=== PATIENT | male | born 1950 | race Caucasian/White ===

== ENCOUNTER → 2017-12-13 08:27 | Outpatient (CLI) | payer OTHER, SELFPAY ==
[2017-12-13 10:13] LABS: Add Manual Diff / Slide Review NO; Basophils Percent Auto 1.8 % (0-2); Eosinophils Percent Auto 2.1 % (2-4); Hematocrit 40.4 % (41-53); Hemoglobin 13.8 g/dL (13.5-17.5); Lymphocytes Percent Auto 23.7 % (25-40); Mean Corpuscular HGB Conc 34.1 % (30-36); Mean Corpuscular Hemoglobin 33.3 PG (26-34); Mean Corpuscular Volume 97.7 fL (80-100); Monocytes Percent Auto 10.2 % (3-14); Neutrophils Absolute Auto 3100 /uL (3000-5900); Neutrophils Percent Auto 62.2 % (50-75); Platelet Count 177 X10^3/uL (150-400); Red Blood Cell Count 4.13 X10^6/uL (4.5-5.9); Red Cell Distribution Width 12.9 % (11.6-14.8)
[2017-12-13 10:19] LABS: Hemoglobin A1C% w Est Avg Glu 5.2 % (4.0-6.0)
[2017-12-13 10:35] LABS: Aspartate Aminotransferase 51 IU/L (17-59); BUN Creatinine Ratio 21.4 (6-22); Blood Urea Nitrogen 15 mg/dL (9-20); Calcium 8.9 mg/dL (8.4-10.2); Carbon Dioxide 32 mmol/L (22-32); Chloride 104 mmol/L (98-107); Cholesterol 93 mg/dL (140-199); Estimated Glomerular Filt Rate > 60.0 mL/min (>60); Glucose 81 mg/dL (80-110); HDL Cholesterol 36 mg/dL (40-60); HEMOLYSIS < 15 (0-50); LDL Cholesterol Calculated 44 mg/dL (<100); Potassium 4.2 mmol/L (3.4-5.1); Sodium 142 mmol/L (137-145); Triglycerides 65 mg/dL (35-150)
== END ==
PROVIDERS: Family Provider Internal Medicine; PCP Internal Medicine; Visit Provider Internal Medicine
DX: R73.01 Impaired fasting glucose (principal); E78.00 Pure hypercholesterolemia, unspecified; I25.10 Atherosclerotic heart disease of native coronary artery without angina pectoris
CPT/HCPCS: 36415; 80048; 80061; 83036; 84450; 85025

== ENCOUNTER → 2018-02-25 08:50 | Outpatient (CLI) | payer OTHER, SELFPAY ==
[2018-02-25 10:05] LABS: Cholesterol 96 mg/dL (140-199); HDL Cholesterol 38 mg/dL (40-60); LDL Cholesterol Calculated 44 mg/dL (<100); Triglycerides 68 mg/dL (35-150)
== END ==
PROVIDERS: Family Provider Internal Medicine; PCP Internal Medicine; Visit Provider Internal Medicine Cardiovascular Disease
DX: E78.00 Pure hypercholesterolemia, unspecified (principal)
CPT/HCPCS: 36415; 80061

== ENCOUNTER → 2018-07-11 10:13 | Outpatient (CLI) | payer OTHER, SELFPAY ==
[2018-07-11 11:27] LABS: Cholesterol 92 mg/dL (140-199); HDL Cholesterol 32 mg/dL (40-60); LDL Cholesterol Calculated 48 mg/dL (<100); Triglycerides 62 mg/dL (35-150)
== END ==
PROVIDERS: Family Provider Internal Medicine; PCP Internal Medicine; Visit Provider Internal Medicine Cardiovascular Disease
DX: I25.10 Atherosclerotic heart disease of native coronary artery without angina pectoris (principal)
CPT/HCPCS: 36415; 80061

== ENCOUNTER 2018-07-30 07:48 | Day surgery (SDC) | payer OTHER, SELFPAY ==
[2018-07-30] VITALS (7 sets, daily range): BP systolic 91–112; BP diastolic 47–63; PULSE 48–52; RESP 12–16; TEMP 36.3–36.6; O2SAT 93–97; BMI 21.1
--- NOTE | 2018-07-30 10:07 | PM.HP.1 ---
History of Present Illness Chief complaint: [id number] Patient History Social History household members: spouse Family & Social History Social History: household members spouse Meds Home Medications Medication Instructions Recorded Confirmed Type [CARLOS PALMETTO] Q DAY #0 03/29/16 History ascorbic acid (vitamin C) 500 mg PO QDAY #0 03/29/16 History aspirin 81 mg PO QDAY #0 03/29/16 History coenzyme Q10 [Co Q-10] 100 mg PO QDAY #0 03/29/16 History fexofenadine 60 mg PO Q DAY #0 03/29/16 History multivitamin [Multiple Vitamins] 1 tab PO QDAY #0 03/29/16 History atorvastatin [Lipitor] 40 mg PO HS #0 01/22/17 07/30/18 History Allergies Allergy/AdvReac Type Severity Reaction Status Date / Time Penicillins [PENICILLINS] Allergy Unknown Unverified 08/28/17 12:27 Review of Systems Review of Systems All systems reviewed & are unremarkable except as noted in HPI and below Exam Vital Signs (past 8 hours): - 07/30/18 08:17 Temperature 97.9 F Pulse Rate 48 L Respiratory Rate 16 Blood Pressure 112/63 Pulse Oximetry 93 Oxygen Delivery Method Room Air Narrative Exam Narrative: Awake alert oriented x3, eyes equal round and reactive, lungs clear to auscultation, heart regular rate and rhythm, abdomen soft nontender nondistended, no lower extremity edema Assessment & Plan Assessment & Plan narrative: Colonoscopy for colon cancer screening
[2018-07-30] MEDS: MIDAZOLAM 5 MG/5 ML VIAL IV (10:14)
[2018-07-30] MEDS: fentaNYL 250 MCG/5 ML INJ IV (10:14)
--- NOTE | 2018-07-30 10:37 | PM.OP.ENDO ---
Operative Date/Time/Diagnoses Date of procedure: 07/30/18 Procedure & Clinicians Study performed: Colonoscopy Moderate conscious sedation was administered by the endoscopy nurse and supervised by the endoscopist. The following parameters were monitored: Oxygen saturation, heart rate, blood pressure, and response to care. Sedation: 4 mg midazolam, 100 mcg fentanyl Procedure Notes Procedure in detail: Prior to the procedure, history and physical was performed, and patient medications and allergies were reviewed. Preprocedure nursing history and assessment was reviewed. Patient identification and proposed procedure were verified by the physician and nurse in the procedure room. The physical status of the patient was reassessed after the procedure. After informed consent was obtained including risks, benefits, and alternatives, the scope was passed under direct vision. Throughout the procedure, the patient's blood pressure, pulse, and oxygen saturations were monitored continuously. The colonoscope was introduced through the anus and advanced to the cecum as identified by the appendiceal orifice and ileocecal valve. The patient tolerated the procedure well. Bowel prep was deemed adequate to detect polyps greater than 5 mm. Digital rectal examination and perianal examinations were unremarkable. Retroflexion revealed grade 2 medium-sized internal hemorrhoids The remainder of the colon was unremarkable Sedation minutes: 19 Specimen(s): none sent Complications: other (No complications. EBL none.) Recommendations: Colonscopy in 5 years Plan for aftercare: Resume home medications Resume previous diet Discharge home with escort
--- NOTE | 2018-07-30 11:22 | SUR.PHASEII ---
Desires d/c home despite continued sleepiness. Able to dress self and is without complaints, tolerating post procedure environment well.
== END 2018-07-30 11:14 | disposition home or self-care (01) ==
PROVIDERS: Family Provider Internal Medicine; PCP Internal Medicine; Visit Provider Internal Medicine
PROC: 0DJD8ZZ Inspection of Lower Intestinal Tract, Via Natural or Artificial Opening Endoscopic (ICD-10-PCS; CPT 45378; principal; 2018-07-30 09:30)
DX: Z12.11 Encounter for screening for malignant neoplasm of colon (principal); Z80.0 Family history of malignant neoplasm of digestive organs; K64.1 Second degree hemorrhoids
CPT/HCPCS: G0105; J2250; J3010

== ENCOUNTER → 2019-04-07 08:34 | Outpatient (CLI) | payer OTHER, SELFPAY ==
[2019-04-07 09:46] LABS: Cholesterol 101 mg/dL (140-199); Glucose 92 mg/dL (80-110); HDL Cholesterol 37 mg/dL (40-60); LDL Cholesterol Calculated 54 mg/dL (<100); Triglycerides 52 mg/dL (35-150)
== END ==
PROVIDERS: Family Provider Internal Medicine; PCP Internal Medicine; Visit Provider Internal Medicine
DX: R73.01 Impaired fasting glucose (principal); E78.00 Pure hypercholesterolemia, unspecified
CPT/HCPCS: 36415; 80061; 82947

== ENCOUNTER → 2019-07-03 08:55 | Outpatient (CLI) | payer OTHER, SELFPAY ==
--- NOTE | 2019-07-03 | DI.US.S_ITS ---
PROCEDURE: US CAROTID DOPPLER BI INDICATIONS: ATHEROSCLEROTIC HEART DISEASE OF [place] CORONARY ARTERY TECHNIQUE: Color and pulse Doppler interrogation was performed of both carotid systems, with image documentation and velocity measurements. COMPARISON: [facility], , CAROTID ARTERY DOPPLER BILAT, 02/18/2017, 8:41. FINDINGS: Stenosis calculations are based on SRU (Society of Radiologists in Ultrasound) criteria. Right side: Brachial blood pressure: 117/68 mm Hg. Common carotid artery peak systolic velocity: 107 cm/sec. Internal carotid artery peak systolic velocity: 89 cm/sec. Internal carotid artery end diastolic velocity: 32 cm/sec. External carotid artery peak systolic velocity: 96 cm/sec. ICA/CCA peak systolic ratio: 0.83. Ghosh scale imaging description: Mild plaquing Percent internal carotid artery stenosis: Less than 50%. Vertebral artery: Flow direction is antegrade. Left side: Brachial blood pressure: 110/65 mm Hg. Common carotid artery peak systolic velocity: 114 cm/sec. Internal carotid artery peak systolic velocity: 95 cm/sec. Internal carotid artery end diastolic velocity: 33 cm/sec. External carotid artery peak systolic velocity: One before cm/sec. ICA/CCA peak systolic ratio: 0.84. Ghosh scale imaging description: Minimal plaquing Percent internal carotid artery stenosis: Less than 50%. Vertebral artery: Flow direction is antegrade. IMPRESSION: Less than 50% internal carotid artery stenoses bilaterally. Dictated by: Nelly Lubin M.D. on 07/03/2019 at 13:34 Approved by: Nelly Lubin M.D. on 07/03/2019 at 13:36
--- NOTE | 2019-07-03 | DI.ECHO.S_ITS ---
[facility]---------+ [facility] +---------+ : : [id number] : : : : [id number] : : : : Phone: [phone]+ Echocardiogram Report + + :Name: ZO GUTIERREZ Study Date: 07/03/2019 Height: 73 in : :[facility] Exam Location: [place] Weight: 160 lb : : Gender: Male BSA: 2.0 m2 : :: 1950 Age: 69 yrs BP: 102/70 mmHg: :Reason For Study: CAD : :Ordering Physician: Dr. Jasso : :[place] Performed By: Adrienne Page : + + Interpretation Summary Sinus bradycardia. Slow pulse; heart rate is 50-53 bpm during the exam. Normal LV size, wall thickness, wall motion and LV systolic function. EF is 60-65%. Moderate biatrial enlargement; otherwise normal chamber sizes. No significant valvular abnormalities. No prior study available for comparison. Procedure: A two-dimensional transthoracic echocardiogram with color flow and Doppler was performed. The study quality was technically adequate. There is no prior echocardiogram noted for this patient. The patient was in sinus bradycardia with heart rates between 50-53 bpm during the exam. Left Ventricle: The left ventricle is normal in size, wall thickness, and systolic function without any focal wall motion abnormalities. The ejection fraction is estimated to be 60-65%. Diastolic parameters suggest probable normal left ventricular diastolic function and normal filling pressures. Right Ventricle: The right ventricle is normal in size and function. Atria: Both atria are moderately dilated. There is no Doppler evidence for an interatrial shunt. Mitral Valve: There is a flat closure plane of the the mitral valve leaflets. There is mild mitral annular calcification. Redundant elongated chordae are noted. There is trace mitral regurgitation. Aortic Valve: The aortic valve is trileaflet. The aortic valve opens well. No aortic regurgitation is present. Tricuspid Valve: The tricuspid valve is normal in structure and function. There is a trace or physiologic amount of tricuspid regurgitation. The right ventricular systolic pressure is estimated to be at least 26 mmHg based on an estimated right atrial pressure of 8 mm Hg. Pulmonic Valve: The pulmonic valve is not well seen, but is grossly normal. There is a trace or physiologic amount of pulmonic regurgitation. Great Vessels: The aortic root is normal size. The ascending aorta is normal in size. The pulmonary artery is normal size. The IVC is dilated (diameter is greater than 2.1 cm) yet it collapses greater than 50% with a sniff. This suggests a right atrial pressure of 8 mm Hg. Pericardium/ Pleura There is no pericardial effusion. There is no pleural effusion. MMode/2D Measurements & Calculations LVIDd: 4.9 cm LVOT diam: 2.3 cm LVIDs: 2.9 cm Ao root diam: 3.7 cm FS: 41.7 % asc Aorta Diam: 3.1 cm IVSd: 0.69 cm LVPWd: 0.71 cm LV pat. diameter/BSA (cm/m^2): 2.5 LV sys. diameter/BSA (cm/m^2): 1.5 LA A2 area: 25.4 cm2 RA long axis: 5.8 cm LA A4 area: 23.4 cm2 RA area: 25.6 cm2 LA length (vol): 5.9 cm RA vol: 96.2 ml LA vol: 86.0 ml RA : 49.1 ml/m2 LA vol index: 43.9 ml/m2 IVC diam: 2.8 cm RVD1 (basal): 4.5 cm TAPSE: 3.6 cm Doppler Measurements & Calculations Ao V2 max: 120.0 cm/sec LVOT Max Kannan: 116.9 cm/sec Ao V2 mean: 84.3 cm/sec LV V1 max P.5 mmHg Ao max P.8 mmHg LV V1 VTI: 25.4 cm Ao mean P.1 mmHg REY(I,D): 4.0 cm2 Ao V2 VTI: 26.5 cm REY(V,D): 4.1 cm2 sev ratio: 0.96 REY indexed to BSA (cm^2/m^2): 2.0 MV E max kannan: 62.9 cm/sec TR max kannan: 212.9 cm/sec MV A max kannan: 65.6 cm/sec TR max P.1 mmHg MV E/A: 0.96 PA V2 max: 83.3 cm/sec Med Peak E' Kannan: 7.9 cm/sec PA V2 mean: 58.4 cm/sec E/E' med: 8.0 PA mean P.5 mmHg Lat Peak E' Kannan: 9.5 cm/sec PA Accel Time: 0.15 sec E/E' lat: 6.6 E/e' average: 7.3 MV dec time: 0.24 sec MV P1/2t: 68.9 msec MV P1/2t max kannan: 61.1 cm/sec SV(LVOT): 105.7 ml MVA(P1/2t): 3.2 cm2 Electronically signed by: Patricia Mata M.D. on Reading Physician:07/03/2019 07:42 PM
== END ==
PROVIDERS: Family Provider Internal Medicine; PCP Internal Medicine; Referring Provider Internal Medicine; Visit Provider Internal Medicine
DX: I65.23 Occlusion and stenosis of bilateral carotid arteries (principal); I25.10 Atherosclerotic heart disease of native coronary artery without angina pectoris
CPT/HCPCS: 93306; 93880

== ENCOUNTER → 2019-10-03 08:19 | Outpatient (CLI) | payer OTHER, SELFPAY ==
[2019-10-03 10:12] LABS: Cholesterol 110 mg/dL (140-199); HDL Cholesterol 36 mg/dL (40-60); LDL Cholesterol Calculated 56 mg/dL (<100); Triglycerides 91 mg/dL (35-150)
[2019-10-03 10:13] LABS: Glucose 91 mg/dL (80-110)
== END ==
PROVIDERS: Family Provider Internal Medicine; PCP Internal Medicine; Referring Provider Internal Medicine Cardiovascular Disease; Visit Provider Internal Medicine
DX: I25.10 Atherosclerotic heart disease of native coronary artery without angina pectoris (principal); E78.00 Pure hypercholesterolemia, unspecified; R00.1 Bradycardia, unspecified; Z95.5 Presence of coronary angioplasty implant and graft; R73.01 Impaired fasting glucose
CPT/HCPCS: 36415; 80061; 82947

== ENCOUNTER → 2020-08-03 08:23 | Outpatient (CLI) | payer OTHER, SELFPAY ==
[2020-08-03 09:10] LABS: Add Manual Diff / Slide Review NO; Basophils Absolute Auto 100 /uL (0-100); Basophils Percent Auto 1.4 % (0-2); Eosinophils Absolute Auto 100 /uL (0-450); Eosinophils Percent Auto 1.7 % (2-4); Hematocrit 42.4 % (41-53); Hemoglobin 14.3 g/dL (13.5-17.5); Lymphocytes Absolute Auto 1200 /uL (1100-4500); Lymphocytes Percent Auto 22.4 % (25-40); Mean Corpuscular HGB Conc 33.8 % (30-36); Mean Corpuscular Hemoglobin 33.1 PG (26-34); Monocytes Absolute Auto 500 /uL (0-900); Neutrophils Absolute Auto 3400 /uL (1500-7000); Neutrophils Percent Auto 65.5 % (50-75); Platelet Count 187 X10^3/uL (150-400); Red Blood Cell Count 4.32 X10^6/uL (4.5-5.9); Red Cell Distribution Width 12.6 % (11.6-14.8); White Blood Cell Count 5.2 X10^3/uL (4.5-11.0)
[2020-08-03 09:27] LABS: Hemoglobin A1C% w Est Avg Glu 5.1 % (4.0-6.0)
[2020-08-03 09:28] LABS: Alanine Aminotransferase 28 IU/L (<50); Albumin Globulin Ratio 1.4 (1.0-2.8); Alkaline Phosphatase 55 U/L (38-126); Aspartate Aminotransferase 38 IU/L (17-59); BUN Creatinine Ratio 23.1 (6-22); Bilirubin Total 0.6 mg/dL (0.2-1.3); Blood Urea Nitrogen 15 mg/dL (9-20); Calcium 8.8 mg/dL (8.4-10.2); Carbon Dioxide 31 mmol/L (22-32); Chloride 106 mmol/L (98-107); Cholesterol 98 mg/dL (140-199); Estimated Glomerular Filt Rate > 60.0 mL/min (>60); Globulin 2.8 g/dL (1.7-4.1); Glucose 94 mg/dL (80-110); HDL Cholesterol 37 mg/dL (40-60); HEMOLYSIS < 15 (0-50); LDL Cholesterol Calculated 48 mg/dL (<100); Potassium 4.2 mmol/L (3.4-5.1); Sodium 140 mmol/L (137-145); Total Protein 6.8 g/dL (6.3-8.2); Triglycerides 67 mg/dL (35-150)
[2020-08-03 09:52] LABS: Prostate Specific Antigen 0.945 ng/mL (0.10-4.00)
== END ==
PROVIDERS: Family Provider Internal Medicine; PCP Internal Medicine; Referring Provider Internal Medicine; Visit Provider Internal Medicine
DX: R73.01 Impaired fasting glucose (principal); E78.2 Mixed hyperlipidemia; N40.1 Benign prostatic hyperplasia with lower urinary tract symptoms
CPT/HCPCS: 36415; 80053; 80061; 83036; 84153; 85025

== ENCOUNTER → 2021-10-30 15:00 | Outpatient (CLI) | payer OTHER, SELFPAY ==
[2021-10-30 16:05] LABS: Hematocrit 41.7 % (41-53); Hemoglobin 14.5 g/dL (13.5-17.5); Mean Corpuscular HGB Conc 34.7 % (30-36); Mean Corpuscular Hemoglobin 33.4 PG (26-34); Mean Corpuscular Volume 96.3 fL (80-100); Platelet Count 199 X10^3/uL (150-400); Red Blood Cell Count 4.33 X10^6/uL (4.5-5.9); Red Cell Distribution Width 12.6 % (11.6-14.8); White Blood Cell Count 5.9 X10^3/uL (4.5-11.0)
[2021-10-30 17:31] LABS: Alanine Aminotransferase 24 IU/L (<50); Albumin 4.3 g/dL (3.5-5.0); Albumin Globulin Ratio 1.5 (1.0-2.8); Alkaline Phosphatase 50 U/L (38-126); Aspartate Aminotransferase 37 IU/L (17-59); BUN Creatinine Ratio 23.2 (6-22); Bilirubin Total 0.5 mg/dL (0.2-1.3); Blood Urea Nitrogen 16 mg/dL (9-20); Calcium 8.8 mg/dL (8.4-10.2); Carbon Dioxide 31 mmol/L (22-32); Chloride 104 mmol/L (98-107); Cholesterol 110 mg/dL (140-199); Estimated Glomerular Filt Rate > 60 mL/min (>60); Globulin 2.8 g/dL (1.7-4.1); Glucose 83 mg/dL (80-110); HDL Cholesterol 35 mg/dL (40-60); HEMOLYSIS < 15 (0-50); LDL Cholesterol Calculated 54 mg/dL (<100); Potassium 4.5 mmol/L (3.4-5.1); Sodium 141 mmol/L (137-145); Total Protein 7.1 g/dL (6.3-8.2); Triglycerides 104 mg/dL (35-150)
[2021-10-30 17:58] LABS: Prostate Specific Antigen 0.983 ng/mL (0.10-4.00)
[2021-10-30 18:00] LABS: TSH w/ Reflex to FT4 2.09 uIU/mL (0.47-4.68)
== END ==
PROVIDERS: Family Provider Internal Medicine; PCP Internal Medicine; Referring Provider Internal Medicine; Visit Provider Internal Medicine
DX: E78.2 Mixed hyperlipidemia (principal); I10 Essential (primary) hypertension; I25.10 Atherosclerotic heart disease of native coronary artery without angina pectoris; N13.8 Other obstructive and reflux uropathy; N40.1 Benign prostatic hyperplasia with lower urinary tract symptoms
CPT/HCPCS: 36415; 80053; 80061; 84153; 84443; 85027

== ENCOUNTER → 2021-12-08 07:17 | Outpatient (CLI) | payer OTHER, SELFPAY ==
[2021-12-08 09:26] LABS: Alanine Aminotransferase 27 IU/L (<50); Albumin 3.7 g/dL (3.5-5.0); Albumin Globulin Ratio 1.6 (1.0-2.8); Alkaline Phosphatase 49 U/L (38-126); Aspartate Aminotransferase 37 IU/L (17-59); Bilirubin Total 0.6 mg/dL (0.2-1.3); Bilirubin Unconjugated 0.7 mg/dL (0.0-1.1); Globulin 2.3 g/dL (1.7-4.1); HEMOLYSIS < 15 (0-50)
== END ==
PROVIDERS: Family Provider Internal Medicine; PCP Internal Medicine; Referring Provider Dermatology; Visit Provider Dermatology
DX: B35.1 Tinea unguium (principal)
CPT/HCPCS: 36415; 80076

== ENCOUNTER → 2022-11-01 10:58 | Outpatient (CLI) | payer OTHER, SELFPAY ==
[2022-11-01 11:35] LABS: Hematocrit 41.6 % (41-53); Hemoglobin 14.5 g/dL (13.5-17.5); Mean Corpuscular HGB Conc 34.7 % (30-36); Mean Corpuscular Volume 95.2 fL (80-100); Platelet Count 221 X10^3/uL (150-400); Red Blood Cell Count 4.38 X10^6/uL (4.5-5.9); Red Cell Distribution Width 12.7 % (11.6-14.8); White Blood Cell Count 5.6 X10^3/uL (4.5-11.0)
[2022-11-01 11:53] LABS: Alanine Aminotransferase 30 IU/L (<50); Albumin Globulin Ratio 1.5 (1.0-2.8); Alkaline Phosphatase 51 U/L (38-126); Aspartate Aminotransferase 38 IU/L (17-59); BUN Creatinine Ratio 26.7 (6-22); Bilirubin Total 0.6 mg/dL (0.2-1.3); Blood Urea Nitrogen 16 mg/dL (9-20); Calcium 8.8 mg/dL (8.4-10.2); Carbon Dioxide 30 mmol/L (22-32); Chloride 103 mmol/L (98-107); Cholesterol 104 mg/dL (140-199); Estimated Glomerular Filt Rate > 60 mL/min (>60); Globulin 2.6 g/dL (1.7-4.1); Glucose 70 mg/dL (80-110); HDL Cholesterol 37 mg/dL (40-60); HEMOLYSIS 38 (0-50); LDL Cholesterol Calculated 48 mg/dL (<100); Potassium 4.9 mmol/L (3.4-5.1); Sodium 138 mmol/L (137-145); Total Protein 6.6 g/dL (6.3-8.2); Triglycerides 95 mg/dL (35-150)
[2022-11-01 12:23] LABS: TSH w/ Reflex to FT4 1.75 uIU/mL (0.47-4.68)
== END ==
PROVIDERS: Family Provider Internal Medicine; PCP Internal Medicine; Referring Provider Internal Medicine; Visit Provider Internal Medicine
DX: E78.2 Mixed hyperlipidemia (principal); N40.1 Benign prostatic hyperplasia with lower urinary tract symptoms; I25.10 Atherosclerotic heart disease of native coronary artery without angina pectoris; N13.8 Other obstructive and reflux uropathy
CPT/HCPCS: 36415; 80053; 80061; 84153; 84443; 85027

== ENCOUNTER 2023-08-16 06:41 | Day surgery (SDC) | payer OTHER, SELFPAY ==
[2023-08-16 07:11] VITALS: BP 124/81; PULSE 48; RESP 16; TEMP 36.4; O2SAT 98
[2023-08-16] MEDS: LACTATED RINGERS 1,000 ML 42 ML IV (07:37)
--- NOTE | 2023-08-16 07:43 | P.HP_ITS ---
History of Present Illness History of Present Illness Date Patient Seen: 08/16/23 Time Patient Seen: 07:43 Chief complaint: [facility] [place] Narrative: H/o colon polyps, father and mother had colon cancer late in life. Last scope was 5 years ago. Asymptomatic [facility] Medical History Family history of colon cancer History of melanoma Cerebrovascular disease Allergic rhinitis History of colonic polyps BPH w urinary obs/LUTS Erectile dysfunction Mixed hyperlipidemia Wears contact lenses Hearing loss Eczema TIA (transient ischemic attack) Disease of spine (~2009) Chronic back pain (~1989) Polio (~1955) Chicken pox (~1959) Colon polyps (~2004) Coronary artery disease Surgical History Anesthesia History of mandibular surgery (~1998) History of knee surgery S/P coronary artery stent placement (~2016) Family History Father Lung cancer History of heart disease Mental health problem Mother Colon cancer Grandfather Parkinson's disease Grandmother Stroke Grandfather Stroke Grandmother Cancer Social History household members: spouse Smoking Status: Never smoker alcohol intake: never Meds Home Medications and Allergies Home Medications Medication Instructions Recorded Confirmed Type aspirin 81 mg tablet,delayed 81 mg PO QDAY ##0 03/29/16 08/16/23 History release coenzyme Q10 100 mg capsule (Co 100 mg PO QDAY ##0 03/29/16 08/16/23 History Q-10) multivitamin (Multiple Vitamins 1 tab PO QDAY ##0 03/29/16 08/16/23 History tablet) saw palmetto 450 mg capsule 450 mg PO DAILY 10/30/21 08/16/23 History atorvastatin 40 mg tablet 40 mg PO DAILY #90 tabs 10/18/22 08/16/23 Rx ascorbic acid (vitamin C) 500 mg 500 mg PO DAILY General health 11/01/22 History tablet (Vitamin C) nitroglycerin 0.3 mg sublingual 0.3 mg sublingual Q5-15M PRN chest 12/25/22 08/16/23 Rx tablet pain #100 tabs peg 3350-electrolytes 236 240 ml PO Q10M #4,000 mL 06/26/23 08/16/23 Rx gram-22.74 gram-6.74 gram-5.86 gram solution (Golytely) Allergies Allergy/AdvReac Type Severity Reaction Status Date / Time Penicillins [PENICILLINS] Allergy Unknown Verified 08/16/23 07:08 Review of Systems Review of Systems ROS: Yes All systems reviewed with the patient and are negative except as otherwise documented Exam Vital Signs (past 8 hours): - 08/16/23 07:11 Temperature 97.5 F L Pulse Rate 48 L Respiratory Rate 16 Blood Pressure 124/81 Pulse Oximetry 98 Oxygen Delivery Method Room Air Oxygen Delivery Method Room Air Const General: cooperative, healthy appearing and comfortable Nutritional Appearance: average body habitus HENMT Head: normocephalic and atraumatic Eyes Sclera: sclerae normal Neck Neck: trachea midline Resp Effort & Inspection: normal respiratory effort and able to speak in complete sentences Cardio Rate: regular rate Rhythm: regular rhythm GI Palpation: soft and No tender Skin General: atrophy and No pallor Neuro General: patient alert, patient awake and patient oriented x3 Cognition: normal cognition Psych Appearance: grossly normal Mental Status: mental status grossly normal Affect: normal affect Judgment: judgment good Assessment & Plan Assessment & Plan narrative: Colonoscopy for h/o colon cancer under anesthesia Time Spent With Patient Time with patient: less than 30 minutes
--- NOTE | 2023-08-16 08:38 | PM.OP.COLON ---
Operative Date/Time/Diagnoses Date of procedure: 08/16/23 Time of procedure: 08:38 Pre-op diagnosis: history of colon polyps Post-op diagnosis: same Procedure & Clinicians Study performed: Colonoscopy with anesthesia Same procedure as scheduled: Yes Indications: History of colon polyps Surgeon: Tiffany George Procedure Notes Procedure in detail: Preop diagnosis: History of colon polyps Postop diagnosis: Same Operative procedure: Colonoscopy with anesthesia Surgeon: Kaitlin George MD Findings: No polyps identified. Tortuous colon with melanosis coli. Procedure: Patient placed in a lateral position. Rectal exam performed showing decreased tone no masses. Scope was inserted into the rectum and advanced to ileocecal valve with minimal difficulty in momentary pressure on the abdomen externally. Insufflation extraction scope including retroflex in the rectum had the above findings Impression: No polyps identified Plan: Repeat colonoscopy 5 years Specimen(s): none sent Post-procedure Recommendations: Colonoscopy in 5 years
[2023-08-16 08:42] VITALS: BP 84/41; PULSE 45; RESP 10; TEMP 36.3; O2SAT 97
[2023-08-16 08:47] VITALS: BP 89/50; PULSE 44; RESP 10; O2SAT 99
[2023-08-16 08:52] VITALS: BP 109/57; PULSE 48; RESP 17; O2SAT 97
[2023-08-16 09:03] VITALS: BP 110/59; PULSE 45; RESP 13; TEMP 36.7; O2SAT 97
== END 2023-08-16 09:17 | disposition home or self-care (01) ==
PROVIDERS: Family Provider Internal Medicine; PCP Internal Medicine; Referring Provider Surgery; Visit Provider Surgery
PROC: 0DJD8ZZ Inspection of Lower Intestinal Tract, Via Natural or Artificial Opening Endoscopic (ICD-10-PCS; CPT 45378; principal; 2023-08-16 07:45)
DX: Z12.11 Encounter for screening for malignant neoplasm of colon (principal); Z86.010 Personal history of colon polyps; K63.89 Other specified diseases of intestine
CPT/HCPCS: 45378; J2704

== ENCOUNTER → 2023-11-05 12:59 | Outpatient (CLI) | payer OTHER, SELFPAY ==
[2023-11-05 14:46] LABS: Hematocrit 41.1 % (41-53); Hemoglobin 13.9 g/dL (13.5-17.5); Mean Corpuscular HGB Conc 33.9 % (30-36); Mean Corpuscular Volume 97.4 fL (80-100); Platelet Count 211 X10^3/uL (150-400); Red Blood Cell Count 4.22 X10^6/uL (4.5-5.9); Red Cell Distribution Width 12.5 % (11.6-14.8); White Blood Cell Count 5.5 X10^3/uL (4.5-11.0)
[2023-11-05 15:13] LABS: HEMOLYSIS < 15 (0-50); Iron 106 ug/dL (49-181)
[2023-11-05 15:15] LABS: Aspartate Aminotransferase 52 IU/L (17-59); BUN Creatinine Ratio 24.2 (6-22); Blood Urea Nitrogen 16 mg/dL (9-20); Calcium 8.5 mg/dL (8.4-10.2); Carbon Dioxide 27 mmol/L (22-32); Chloride 108 mmol/L (98-107); Cholesterol 97 mg/dL (140-199); Estimated Glomerular Filt Rate > 60 mL/min (>60); Glucose 89 mg/dL (80-110); HDL Cholesterol 35 mg/dL (40-60); HEMOLYSIS < 15 (0-50); LDL Cholesterol Calculated 42 mg/dL (<100); Potassium 4.4 mmol/L (3.4-5.1); Sodium 140 mmol/L (137-145); Triglycerides 100 mg/dL (35-150)
[2023-11-05 15:25] LABS: Percent Iron Saturation 36 % (20-50); Total Iron Binding Capacity 297 ug/dL (261-462); Transferrin 206 mg/dL (206-381)
[2023-11-05 15:43] LABS: Prostate Specific Antigen 0.872 ng/mL (0.10-4.00)
[2023-11-05 15:44] LABS: TSH w/ Reflex to FT4 2.44 uIU/mL (0.47-4.68)
== END ==
LOC: LAB 12:59
PROVIDERS: Family Provider Internal Medicine; PCP Internal Medicine; Referring Provider Internal Medicine; Visit Provider Internal Medicine
DX: N40.1 Benign prostatic hyperplasia with lower urinary tract symptoms (principal); N13.8 Other obstructive and reflux uropathy; E78.2 Mixed hyperlipidemia; I25.10 Atherosclerotic heart disease of native coronary artery without angina pectoris
CPT/HCPCS: 36415; 80048; 80061; 83540; 83550; 84153; 84443; 84450; 85027

== ENCOUNTER → 2024-06-11 09:52 | Outpatient (CLI) | payer OTHER, SELFPAY ==
--- NOTE | 2024-06-11 09:54 | DI.CT.S_ITS ---
PROCEDURE: CT ABDOMEN PELVIS W CON INDICATIONS: abd pain TECHNIQUE: After the administration of intravenous contrast, axial sections acquired from the lung bases to the pubic symphysis. Coronal and sagittal reformats were performed. For radiation dose reduction, the following was used: automated exposure control, adjustment of mA and/or kV according to patient size. COMPARISON: None. FINDINGS: Image quality: Diagnostic. Lower Chest: No significant findings. ABDOMEN: Liver: No solid mass. Gallbladder: No radiopaque gallstones or wall thickening. Biliary ducts: No biliary dilation. Pancreas: No ductal dilation. Spleen: Size is within normal limits. Adrenal Glands: No adrenal nodules. Kidneys and Ureters: No hydronephrosis. No solid mass. No complex renal cystic lesion which requires follow up. Stomach and Bowel: Normal colonic caliber, without significant wall thickening. Normal caliber appendix in the right lower quadrant. Moderate fecal loading. Peritoneum: No abnormal intraperitoneal fluid. No free air. Ventral Wall: No significant ventral hernia. Abdominal Nodes: No retroperitoneal or mesenteric adenopathy by size criteria. Vessels: Aorta and inferior vena cava are normal in size. PELVIS: Pelvic Organs: Unremarkable. Bladder: No bladder wall thickening, accounting for underdistention. Pelvic Nodes: No enlarged lymph nodes. Miscellaneous: No inguinal hernias are seen. Bones: No aggressive osseous abnormality. IMPRESSION: No acute abdominopelvic process. Moderate fecal loading can be seen in the setting of constipation. Approved by: Rubi Fajardo M.D.,Ph.D. on 06/12/2024 at 0:42
[2024-06-11 10:37] LABS: Estimated Glomerular Filt Rate > 60 mL/min (>60)
== END ==
PROVIDERS: Radiology Diagnostic Radiology; Family Provider Internal Medicine; PCP Internal Medicine; Referring Provider Internal Medicine; Visit Provider Internal Medicine
DX: R10.9 Unspecified abdominal pain (principal)
CPT/HCPCS: 36415; 74177; 82565; Q9967

== ENCOUNTER → 2024-11-05 10:37 | Outpatient (CLI) | payer OTHER, SELFPAY ==
[2024-11-05 11:28] LABS: Hematocrit 41.5 % (41-53); Hemoglobin 14.2 g/dL (13.5-17.5); Mean Corpuscular HGB Conc 34.3 % (30-36); Mean Corpuscular Hemoglobin 33.4 PG (26-34); Mean Corpuscular Volume 97.2 fL (80-100); Platelet Count 259 X10^3/uL (150-400); Red Blood Cell Count 4.27 X10^6/uL (4.5-5.9); Red Cell Distribution Width 12.7 % (11.6-14.8); White Blood Cell Count 6.1 X10^3/uL (4.5-11.0)
[2024-11-05 12:13] LABS: Aspartate Aminotransferase 44 IU/L (17-59); BUN Creatinine Ratio 26.7 (6-22); Blood Urea Nitrogen 16 mg/dL (9-20); Calcium 9.3 mg/dL (8.4-10.2); Carbon Dioxide 27 mmol/L (22-32); Chloride 104 mmol/L (98-107); Cholesterol 94 mg/dL (140-199); Estimated Glomerular Filt Rate > 60 mL/min (>60); Glucose 87 mg/dL (70-99); HDL Cholesterol 33 mg/dL (40-60); HEMOLYSIS < 15 (0-50); LDL Cholesterol Calculated 42 mg/dL (<100); Potassium 4.9 mmol/L (3.4-5.1); Sodium 138 mmol/L (137-145); Triglycerides 94 mg/dL (35-150)
[2024-11-05 12:44] LABS: Prostate Specific Antigen 0.934 ng/mL (0.10-4.00)
[2024-11-05 12:45] LABS: TSH w/ Reflex to FT4 2.39 uIU/mL (0.47-4.68)
[2024-11-05 13:03] LABS: Vitamin B12 Reflex MMA if <400 618 pg/mL (239-931)
== END ==
PROVIDERS: PCP Internal Medicine; Referring Provider Internal Medicine; Visit Provider Internal Medicine
DX: N13.8 Other obstructive and reflux uropathy (principal); E78.2 Mixed hyperlipidemia; N40.1 Benign prostatic hyperplasia with lower urinary tract symptoms; E53.8 Deficiency of other specified B group vitamins
CPT/HCPCS: 36415; 80048; 80061; 82607; 84153; 84443; 84450; 85027

== ENCOUNTER 2024-12-28 13:31 | Emergency (ER) | payer OTHER, SELFPAY ==
[2024-12-28 13:35] VITALS: BP 153/67; PULSE 51; RESP 20; TEMP 36.5; O2SAT 98; BMI 21.7
[2024-12-28] MEDS: RABIES VACCINE (RABAVERT) 2.5 UNITS SYRINGE IM (14:53)
[2024-12-28] MEDS: RABIES IMMUNE GLOBULIN 150 UNIT/ML 1500 UNIT IM (14:54)
--- NOTE | 2024-12-28 15:14 | PC.NURSE ---
Iimmunoglobulin administered between bilateral vasastus lateralis and deltoids.
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
[2024-12-28 15:25] VITALS: BP 130/62; PULSE 52; RESP 16; TEMP 36.7; O2SAT 99
== END 2024-12-28 15:34 | disposition home or self-care (01) ==
PROVIDERS: Emergency Provider Student in an Organized Health Care Education/Training Program; PCP Internal Medicine
DX: Z20.3 Contact with and (suspected) exposure to rabies (principal); Z23 Encounter for immunization
CPT/HCPCS: 90377; 90471; 90675; 96372; 99283

== ENCOUNTER → 2024-12-31 10:26 | Outpatient (CLI) | payer OTHER, SELFPAY ==
[2024-12-31 12:30] LABS: HEMOLYSIS < 15 (0-50); Iron 68 ug/dL (49-181)
[2024-12-31 12:41] LABS: Percent Iron Saturation 24 % (20-50); Total Iron Binding Capacity 286 ug/dL (261-462); Transferrin 211 mg/dL (206-381)
[2024-12-31 20:01] LABS: Ferritin 21 ng/mL (18-464)
== END ==
PROVIDERS: Pediatrics; PCP Internal Medicine; Referring Provider Internal Medicine; Visit Provider Internal Medicine
DX: E83.10 Disorder of iron metabolism, unspecified (principal); G47.61 Periodic limb movement disorder
CPT/HCPCS: 36415; 82728; 83540; 83550; 86140